=== PATIENT | female | born 1990 ===

== ENCOUNTER 2017-11-06 14:02 | Emergency (ER) | payer OTHER ==
[2017-11-06 14:52] LABS: HCG,QUALITATIVE URINE NEGATIVE (NEGATIVE)
[2017-11-06 15:07] LABS: SQUAMOUS EPITHIAL 16 /hpf (0-5); URINE BILIRUBIN NEGATIVE (NEGATIVE); URINE BLOOD NEGATIVE (NEGATIVE); URINE CLARITY Hazy (Clear); URINE COLOR Yellow (YELLOW); URINE GLUCOSE (UA) NORMAL (Normal); URINE LEUKOCYTE ESTERASE 1+ Leu/uL (Negative); URINE PROTEIN NEGATIVE (NEGATIVE); URINE UROBILINOGEN NORMAL mg/dL (0.2-1.0)
[2017-11-06 15:07] LABS: BASO % 0.3 % (0.0-2.0); EOS # 0.2 K/uL (0.0-0.7); EOS % 1.9 % (0.0-4.0); HEMOGLOBIN 13.2 g/dL (11.0-16.0); LYMPH # 3.9 K/uL (1.0-4.3); LYMPH % 42.7 % (20.0-40.0); MEAN CELL VOLUME 90.4 fL (81.0-99.0); MEAN CORPUSCULAR HEMOGLOBIN 30.9 pg (27.0-31.0); MEAN CORPUSCULAR HGB CONC 34.2 g/dL (33.0-37.0); MONO # 0.7 K/uL (0.0-0.8); MONO % 7.5 % (0.0-10.0); NEUT # 4.3 K/uL (1.8-7.0); NEUT % 47.6 % (50.0-75.0); RBC 4.27 Mil/uL (3.80-5.20); RED CELL DISTRIBUTION WIDTH 13.2 % (11.5-14.5); WHITE BLOOD COUNT 9.1 K/uL (4.8-10.8)
--- NOTE | 2017-11-06 15:23 | C.PDOC ---
History Of Present Illness <Tarsha Georges - Last Filed: 11/06/17 19:10> <Justino Bang - Last Filed: 11/06/17 20:16> 27 y/o female presents to ED with c/o right sided abdominal pain since yesterday. Also notes pressure with urination and rectal pressure. Patient reports symptoms became worse today prompting visit to ED. Last bowel movement was yesterday. Patient admits to nausea and denies blood in stool, fever, chills , vomiting, sob, chest pain, or vaginal discharge. (Tarsha Georges) History Per: Patient History/Exam Limitations: no limitations Onset/Duration Of Symptoms: Days Current Symptoms Are (Timing): Still Present Location Of Pain/Discomfort: RUQ, RLQ Radiation Of Pain To:: None <Tarsha Georges - Last Filed: 11/06/17 19:10> <Justino Bang - Last Filed: 11/06/17 20:16> Time Seen by Provider: 11/06/17 14:13 Chief Complaint (Nursing): Abdominal Pain Past Medical History Reviewed: Historical Data, Nursing Documentation, Vital Signs - Medical History PMH: No Chronic Diseases Surgical History: No Surg Hx Family History: States: No Known Family Hx - Social History Hx Alcohol Use: No Hx Substance Use: Yes (marijuana) - Immunization History Hx Tetanus Toxoid Vaccination: No Hx Influenza Vaccination: No Hx Pneumococcal Vaccination: No <Tarsha Georges - Last Filed: 11/06/17 19:10> Vital Signs: Last Vital Signs Temp 98.6 F 11/06/17 19:30 Pulse 60 11/06/17 19:30 Resp 16 11/06/17 19:30 BP 129/86 11/06/17 19:30 Pulse Ox 99 11/06/17 19:30 Review Of Systems Constitutional: Negative for: Fever, Chills Gastrointestinal: Positive for: Nausea, Abdominal Pain. Negative for: Vomiting , Diarrhea Genitourinary: Positive for: Dysuria, Pelvic Pain. Negative for: Frequency, Vaginal Discharge, Vaginal Bleeding <Tarsha Georges - Last Filed: 11/06/17 19:10> Physical Exam - Physical Exam Appears: Non-toxic, No Acute Distress Skin: Warm, Dry, No Rash Head: Atraumatic, Normacephalic Eye(s): bilateral: Normal Inspection, EOMI Nose: Normal Oral Mucosa: Moist Neck: Normal ROM, Supple Chest: Symmetrical Cardiovascular: Rhythm Regular Respiratory: Normal Breath Sounds, No Accessory Muscle Use, No Rales, No Rhonchi , No Wheezing Gastrointestinal/Abdominal: Soft, Tenderness (Right sided abdominal and pelvic tenderness), No Guarding, No Rebound Rectal: No Blood Streaked Stool, Hemorrhoids (external non thrombosed), No Tenderness, Other (some hard stool) Back: No CVA Tenderness Extremity: Normal ROM Neurological/Psych: Oriented x3, Normal Speech, Normal Cognition <Tarsha Georges - Last Filed: 11/06/17 19:10> ED Course And Treatment - Laboratory Results Result Diagrams: 11/06/17 15:01 11/06/17 15:01 O2 Sat by Pulse Oximetry: 100 Progress Note: Obstructive series xray, Urine culture ordered. Glycerin, Toradol , Zofran and IV fluids administered. On re evaluation patient states she had a small BM. NOtes pain persists in RLQ. CT ordered. Case endorsed to Dr Bang pending CT scan. <Tarsha Georges - Last Filed: 11/06/17 19:10> - Laboratory Results Result Diagrams: 11/06/17 15:01 11/06/17 15:01 <Justino Bang - Last Filed: 11/06/17 20:16> Disposition - Disposition Disposition Time: 19:13 <Tarsha Georges - Last Filed: 11/06/17 19:10> Counseled Patient/Family Regarding: Diagnosis - POA Present On Arrival: None <Justino Bang - Last Filed: 11/06/17 20:16> - Disposition Referrals: [facility] [Outside] Condition: STABLE Prescriptions: Naproxen 375 mg PO TIDPC #14 tablet Instructions: Acute Abdomen (Belly Pain), Ovarian Cyst (DC) Forms: [employer] (Turkmen) - Clinical Impression Clinical Impression: Abdominal pain, Constipation, Ovarian cyst - PA / CHEMIC MANGLER / Resident Statement MD/DO has reviewed & agrees with the documentation as recorded. - Scribe Statement The provider has reviewed the documentation as recorded by the Scribe <Tarsha Georges - Last Filed: 07/20/18 19:10> <Justino Bang - Last Filed: 11/06/17 20:16> - Scribe Statement Jose Leggett All medical record entries made by the Scribe were at my direction and personally dictated by me. I have reviewed the chart and agree that the record accurately reflects my personal performance of the history, physical exam, medical decision making, and the department course for this patient. I have also personally directed, reviewed, and agree with the discharge instructions and disposition. (Tarsha Georges)
[2017-11-06 15:28] LABS: ALB/GLOB RATIO 1.5 (1.0-2.1); ALBUMIN 4.4 g/dL (3.5-5.0); ALT/SGPT 29 U/L (9-52); AST/SGOT 28 U/L (14-36); BLOOD UREA NITROGEN 16 mg/dL (7-17); CALCIUM 9.3 mg/dl (8.6-10.4); GFR AFRICAN-AMERICAN > 60; GFR NON-AFRICAN AMERICAN > 60; LIPASE 46 U/L (23-300)
--- NOTE | 2017-11-06 17:20 | RAD ---
Date of service: 11/06/2017 PROCEDURE: Radiographs of the chest and abdomen (obstructive series) HISTORY: abd pain COMPARISON: No prior. TECHNIQUE: AP radiograph of the chest, with upright and supine radiographs of the abdomen. FINDINGS: CHEST: Lungs: Clear. Cardiovascular: Normal size heart. No pulmonary vascular congestion. Pleura: No pleural fluid. No pneumothorax. Other findings: None. ABDOMEN AND PELVIS: Bowel: Unremarkable bowel gas pattern. No evidence of mechanical obstruction. Free air: None. Bones: Unremarkable. Other findings: None. IMPRESSION: Unremarkable radiographs of chest and abdomen. No evidence of mechanical bowel obstruction.
[2017-11-06] MEDS ORDERED: Iodixanol 320 MG/ML 100 ML BOTTLE IV ONE (18:02)
[2017-11-06 20:36] VITALS: BP 125/85; PULSE 80; RESP 18; TEMP 97.9; O2SAT 96
--- NOTE | 2017-11-07 10:56 | CT ---
Date of service: 11/06/2017 PROCEDURE: CT Abdomen and Pelvis with contrast HISTORY: pain COMPARISON: None. TECHNIQUE: Contrast dose: Visipaque 320, 100 cc Radiation dose: Total exam DLP = 200.12 mGy-cm. This CT exam was performed using one or more of the following dose reduction techniques: Automated exposure control, adjustment of the mA and/or kV according to patient size, and/or use of iterative reconstruction technique. FINDINGS: LOWER THORAX: Unremarkable. LIVER: Unremarkable. No gross lesion or ductal dilatation. GALLBLADDER AND BILE DUCTS: Unremarkable. PANCREAS: Unremarkable. No gross lesion or ductal dilatation. SPLEEN: Unremarkable. ADRENALS: Unremarkable. No mass. KIDNEYS AND URETERS: Unremarkable. No hydronephrosis. No solid mass. VASCULATURE: Unremarkable. No aortic aneurysm. BOWEL: The stomach is mildly distended with retained food and gas and is otherwise unremarkable appearing. The bowel does not appear obstructed. Large-bowel is largely collapsed and mid to distal segments and is poorly evaluated. Under opacified small bowel is unremarkable grossly. APPENDIX: Normal appendix. PERITONEUM: Trace fluid is seen the pelvis which may be from recent adnexal cyst rupture although no definite adnexal cysts identified at this time bilaterally. Clinically correlate further. LYMPH NODES: Unremarkable. No enlarged lymph nodes. BLADDER: Unremarkable. REPRODUCTIVE: Unremarkable. BONES: No acute fracture. OTHER FINDINGS: Umbilical ring suggested. IMPRESSION: 1. No bowel air tract obstruction, free intrarenal gas or prominent ascites. The appendix appears normal. 2. Trace pelvic fluid is appreciated within the lower pelvic peritoneal spaces may be from recent adnexal cyst rupture though no specific adnexal cysts identified in either X compartment at this time. Follow-up pelvic ultrasound can be performed if clinically warranted. Concordant preliminary report from [facility], 11/06/2017.
== END 2017-11-06 20:36 | disposition home or self-care (01) ==
LOC: C.ER 14:02
DX: K59.00 Constipation, unspecified (principal); N83.209 Unspecified ovarian cyst, unspecified side; R10.9 Unspecified abdominal pain
CPT/HCPCS: 74022; 74177; 80053; 81001; 83690; 84703; 85025; 87086; 96374; 96375; 99284; J1885; J2405; Q9967